=== PATIENT | female | born 1935 | race Caucasian/White ===

== ENCOUNTER 2018-12-20 02:20 | Inpatient (IN) ==
[2018-12-20] MEDS ORDERED: Ondansetron 4 MG/2 ML VIAL IVP PRN (05:35)
[2018-12-20] MEDS ORDERED: Acetaminophen 325 MG TABLET PO PRN (05:35)
[2018-12-20] MEDS ORDERED: Dextrose Gel 15 GM/37.5 ML TUBE PO PRN ×2 (05:35)
[2018-12-20] MEDS ORDERED: *HR* Dextrose 50 % in Water (Syg) 50 ML SYRINGE IVP PRN (05:35)
[2018-12-20 06:00] LABS: Basophils % 0.2 %
[2018-12-20 06:02] LABS: Basophils # 0.1 K/mcL (0.0-0.2); Hematocrit 34.1 % (35.3-44.9); Lymphocytes # 0.7 K/mcL (0.6-4.6); Lymphocytes % 2.4 %; Mean Corpuscular HGB Conc 32.3 g/dL (31.6-35.5); Mean Corpuscular Hemoglobin 31.3 pg (28.0-33.3); Mean Corpuscular Volume 96.9 fL (83.0-100.0); Mean Platelet Volume 9.3 fL (9.4-12.4); Monocytes # 1.3 K/mcL (0.0-1.3); Monocytes % 4.4 %; Platelet Count 159 K/mcL (140-400); Red Blood Count 3.52 M/mcL (3.82-4.97); White Blood Count 28.9 K/mcL (4.3-11.1)
[2018-12-20 06:04] LABS: Neutrophils # 26.6 K/mcL (1.6-8.9)
[2018-12-20 06:08] LABS: INR 1.3; Prothrombin Time 14.5 Seconds (9.4-12.1)
[2018-12-20 06:10] LABS: Activated Partial Thrombo Time 29.6 Seconds (26.0-36.0)
[2018-12-20 06:23] LABS: Bilirubin,Direct 0.2 mg/dL (0.0-0.2); Bilirubin,Indirect 0.4 mg/dL (0.0-1.2); Bilirubin,Total 0.6 mg/dL (0.3-1.0); Calcium 8.2 mg/dL (8.6-10.3); Magnesium 1.5 mg/dL (1.6-2.6); Platelet Estimate Normal (Normal); Potassium 3.1 mEq/L (3.5-5.1); Troponin I 0.44 ng/mL (< 0.04)
[2018-12-20] MEDS ORDERED: Potassium Chloride 40 MEQ, Lidocaine 1% 2 ML in 0.9 % Sodium Chloride 500 ML IVPB ONE (06:26)
[2018-12-20] MEDS: *HR* Heparin 5,000 UNIT/ML VIAL SQ SCH ×3 (06:30→21:09)
[2018-12-20] MEDS: Insulin LISPRO 300 UNITS/3 ML VIAL SQ SCH ×3 (06:32→16:37)
[2018-12-20] MEDS ORDERED: Potassium Phosphate 44 MEQ in 0.9 % Sodium Chloride 250 ML IVPB ONE (06:33)
[2018-12-20] MEDS ORDERED: Insulin LISPRO 300 UNITS/3 ML VIAL SQ SCH ×2 (07:30→21:00)
[2018-12-20] MEDS ORDERED: D5% in Water 1,000 ML IVC PRN (08:35)
[2018-12-20] MEDS: Ringers Solution, Lactated 1,000 ML IVC SCH ×2 (08:47→15:52)
[2018-12-20] MEDS: Piperacillin/Tazobactam 3.375 GM in 0.9 % Sodium Chloride Mini Bag 100 ML IVPB SCH ×2 (08:52→15:54)
[2018-12-20] MEDS ORDERED: 0.9 % Sodium Chloride 1,000 ML IVC ONE (16:49)
[2018-12-20 22:40] LABS: Acinetobacter baumannii by PCR Not Detected (Not Detect); Enterobacter cloacae Cmplx PCR Not Detected (Not Detect); Enterococcus by PCR Not Detected (Not Detect); Staphylococcus aureus by PCR Not Detected (Not Detect); Staphylococcus by PCR Not Detected (Not Detect); Streptococcus agalactiae(B)PCR Not Detected (Not Detect); Streptococcus by PCR Not Detected (Not Detect); Streptococcus pneumoniae PCR Not Detected (Not Detect); Streptococcus pyogenes (A) PCR Not Detected (Not Detect); blaKPC Carbapenem-Resist Gene Not Detected (Not Detect)
[2018-12-20 22:41] LABS: Candida albicans by PCR Not Detected (Not Detect); Candida glabrata by PCR Not Detected (Not Detect); Candida krusei by PCR Not Detected (Not Detect); Candida parapsilosis by PCR Not Detected (Not Detect); Candida tropicalis by PCR Not Detected (Not Detect); Escherichia coli by PCR DETECTED (Not Detect); Klebsiella oxytoca by PCR Not Detected (Not Detect); Klebsiella pneumoniae by PCR Not Detected (Not Detect); Proteus by PCR Not Detected (Not Detect); Pseudomonas aeruginosa by PCR Not Detected (Not Detect); Serratia marcescens by PCR Not Detected (Not Detect)
[2018-12-21] MEDS: Insulin LISPRO 300 UNITS/3 ML VIAL SQ SCH ×5 (01:08→20:13)
[2018-12-21] MEDS: Piperacillin/Tazobactam 3.375 GM in 0.9 % Sodium Chloride Mini Bag 100 ML IVPB SCH ×4 (01:11→23:19)
[2018-12-21] MEDS: *HR* Heparin 5,000 UNIT/ML VIAL SQ SCH ×3 (05:42→20:15)
[2018-12-21 06:19] LABS: Hematocrit 29.9 % (35.3-44.9); Hemoglobin 9.6 g/dL (11.5-15.4); Mean Corpuscular HGB Conc 32.1 g/dL (31.6-35.5); Mean Corpuscular Hemoglobin 30.9 pg (28.0-33.3); Mean Corpuscular Volume 96.1 fL (83.0-100.0); Mean Platelet Volume 9.6 fL (9.4-12.4); Platelet Count 130 K/mcL (140-400); Red Blood Count 3.11 M/mcL (3.82-4.97); Red Cell Distribution Width 14.8 % (11.5-14.5)
[2018-12-21 06:38] LABS: Magnesium 1.7 mg/dL (1.6-2.6); Phosphorous 3.5 mg/dL (2.7-4.5); Potassium 3.6 mEq/L (3.5-5.1)
[2018-12-21 07:06] LABS: White Blood Count 11.5 K/mcL (4.3-11.1)
[2018-12-21] MEDS ORDERED: Cholestyramine 4 GM POWD.PACK PO PRN (09:08)
[2018-12-21] MEDS ORDERED: *HR* HYDROcodone/Acet 5/325 mg TABLET PO PRN (09:08)
[2018-12-21] MEDS ORDERED: *HR* LORazepam 0.5 MG TABLET PO PRN ×2 (09:08→09:19)
[2018-12-21] MEDS ORDERED: Albuterol 2.5 MG/3 ML NEBULIZER IH PRN (09:10)
[2018-12-21] MEDS: Metoprolol XL (24 HR) Succ 50 MG TAB.ER.24H PO SCH (10:01)
[2018-12-21] MEDS: Aspirin Enteric Coated 81 MG Tablet PO SCH (10:01)
[2018-12-21] MEDS: Ascorbic Acid 500 MG TABLET PO SCH (10:19)
[2018-12-21] MEDS: *HR* HYDROcodone/Acet 5/325 mg TABLET PO PRN ×2 (16:17→20:16)
[2018-12-21 18:17] LABS: Adenovirus F 40/41 PCR Not detected (Not detect); Astrovirus PCR Not detected (Not detect); C.difficile Toxin A/B Gene PCR Not detected (Not detect); Campylobacter by PCR Not detected (Not detect); Cryptosporidium by PCR Not detected (Not detect); Cyclospora cayetanensis PCR Not detected (Not detect); E. coli O157 by PCR Not detected (Not detect); Entamoeba histolytica PCR Not detected (Not detect); Enteroaggregative E.coli(EAEC) Not detected (Not detect); Enteropathogenic E.coli(EPEC) Not detected (Not detect); Enterotoxigenic E.coli (ETEC) Not detected (Not detect); Giardia lamblia PCR Not detected (Not detect); Norovirus GI/GII PCR Not detected (Not detect); Plesiomonas shigelloides PCR Not detected (Not detect); Rotavirus A PCR Not detected (Not detect); Salmonella PCR Not detected (Not detect); Sapovirus PCR Not detected (Not detect); Shig/EnteroinvasiveE coli EIEC Not detected (Not detect); Shigalike tox-prod E coli STEC Not detected (Not detect); Vibrio PCR Not detected (Not detect); Vibrio cholerae PCR Not detected (Not detect); Yersinia enterocolitica PCR Not detected (Not detect)
[2018-12-21] MEDS: Divalproex (12 HR) 500 MG TABLET PO SCH (20:13)
[2018-12-21] MEDS: Melatonin 3 MG TABLET PO SCH (20:14)
[2018-12-21] MEDS: Dorzolamide OPTH 10 ML BOTTLE BOTH EYES SCH (20:15)
[2018-12-21] MEDS: Latanoprost 2.5 ML BOTTLE BOTH EYES SCH (20:16)
[2018-12-21] MEDS ORDERED: NON-FORMULARY MEDICATION 1 EACH EACH (Melatonin 5 MG) PO SCH (21:00)
[2018-12-22] MEDS: *HR* Heparin 5,000 UNIT/ML VIAL SQ SCH ×3 (05:40→22:29)
[2018-12-22 05:53] LABS: Hematocrit 27.6 % (35.3-44.9); Hemoglobin 8.9 g/dL (11.5-15.4); Mean Corpuscular HGB Conc 32.2 g/dL (31.6-35.5); Mean Corpuscular Volume 96.2 fL (83.0-100.0); Mean Platelet Volume 9.5 fL (9.4-12.4); Platelet Count 157 K/mcL (140-400); Red Blood Count 2.87 M/mcL (3.82-4.97); Red Cell Distribution Width 14.6 % (11.5-14.5); White Blood Count 11.9 K/mcL (4.3-11.1)
[2018-12-22 06:15] LABS: Calcium 8.1 mg/dL (8.6-10.3); Potassium 3.6 mEq/L (3.5-5.1)
[2018-12-22 06:41] LABS: Magnesium 1.7 mg/dL (1.6-2.6); Phosphorous 2.7 mg/dL (2.7-4.5)
[2018-12-22] MEDS: Piperacillin/Tazobactam 3.375 GM in 0.9 % Sodium Chloride Mini Bag 100 ML IVPB SCH ×2 (07:56→14:45)
[2018-12-22] MEDS: Insulin LISPRO 300 UNITS/3 ML VIAL SQ SCH ×4 (07:57→22:31)
[2018-12-22] MEDS: Cholecalciferol (D-3) 1,000 UNIT (25MCG) TABLET PO SCH (08:58)
[2018-12-22] MEDS: Aspirin Enteric Coated 81 MG Tablet PO SCH (08:58)
[2018-12-22] MEDS: Metoprolol XL (24 HR) Succ 50 MG TAB.ER.24H PO SCH (08:58)
[2018-12-22] MEDS: BuPROPion XL (24 HR) 150 MG TABLET PO SCH (08:58)
[2018-12-22] MEDS ORDERED: Ascorbic Acid 500 MG TABLET PO SCH (09:00)
[2018-12-22] MEDS ORDERED: Latanoprost 2.5 ML BOTTLE BOTH EYES SCH (09:00)
[2018-12-22] MEDS: Dorzolamide OPTH 10 ML BOTTLE BOTH EYES SCH ×2 (09:12→22:31)
[2018-12-22] MEDS: Divalproex (12 HR) 250 MG TABLET PO SCH (12:18)
[2018-12-22] MEDS: Ascorbic Acid 500 MG TABLET PO SCH (12:19)
[2018-12-22] MEDS: Melatonin 3 MG TABLET PO SCH (22:29)
[2018-12-22] MEDS: Divalproex (12 HR) 500 MG TABLET PO SCH (22:29)
[2018-12-22] MEDS: Latanoprost 2.5 ML BOTTLE BOTH EYES SCH (22:31)
[2018-12-23] MEDS: Piperacillin/Tazobactam 3.375 GM in 0.9 % Sodium Chloride Mini Bag 100 ML IVPB SCH ×2 (02:45→08:52)
[2018-12-23] MEDS: *HR* Heparin 5,000 UNIT/ML VIAL SQ SCH ×3 (06:09→22:26)
[2018-12-23] MEDS: BuPROPion XL (24 HR) 150 MG TABLET PO SCH (08:52)
[2018-12-23] MEDS: Aspirin Enteric Coated 81 MG Tablet PO SCH (08:52)
[2018-12-23] MEDS: Metoprolol XL (24 HR) Succ 50 MG TAB.ER.24H PO SCH (08:52)
[2018-12-23] MEDS: Cholecalciferol (D-3) 1,000 UNIT (25MCG) TABLET PO SCH (08:52)
[2018-12-23] MEDS: Dorzolamide OPTH 10 ML BOTTLE BOTH EYES SCH ×2 (09:03→22:29)
[2018-12-23] MEDS: Insulin LISPRO 300 UNITS/3 ML VIAL SQ SCH ×4 (09:05→22:27)
[2018-12-23] MEDS ORDERED: levoFLOXacin 750 MG TABLET PO SCH (12:00)
[2018-12-23 13:17] LABS: Hematocrit 30.1 % (35.3-44.9); Hemoglobin 10.1 g/dL (11.5-15.4); Mean Corpuscular HGB Conc 33.6 g/dL (31.6-35.5); Mean Corpuscular Hemoglobin 31.7 pg (28.0-33.3); Mean Corpuscular Volume 94.4 fL (83.0-100.0); Mean Platelet Volume 9.1 fL (9.4-12.4); Platelet Count 185 K/mcL (140-400); Red Blood Count 3.19 M/mcL (3.82-4.97); Red Cell Distribution Width 14.4 % (11.5-14.5); White Blood Count 12.9 K/mcL (4.3-11.1)
[2018-12-23 13:32] LABS: BUN/Creatinine Ratio 12 (6-26); Blood Urea Nitrogen 13 mg/dL (8-23); Calcium 8.3 mg/dL (8.6-10.3); Carbon Dioxide 22 mEq/L (23-29); Chloride 110 mEq/L (98-107); Glucose 133 mg/dL (70-105); Magnesium 1.6 mg/dL (1.6-2.6); Osmolality,Calculated 282 (280-300); Phosphorous 2.5 mg/dL (2.7-4.5); Potassium 3.5 mEq/L (3.5-5.1); Sodium 135 mEq/L (136-145); eGFR For African Americans > 60 (> 60); eGFR For Non-African Americans 50 (> 60)
[2018-12-23] MEDS: Divalproex (12 HR) 250 MG TABLET PO SCH (14:01)
[2018-12-23] MEDS: Ascorbic Acid 500 MG TABLET PO SCH (14:01)
[2018-12-23] MEDS: Melatonin 3 MG TABLET PO SCH (22:26)
[2018-12-23] MEDS: Divalproex (12 HR) 500 MG TABLET PO SCH (22:27)
[2018-12-23] MEDS: Latanoprost 2.5 ML BOTTLE BOTH EYES SCH (22:29)
[2018-12-24] MEDS: *HR* Heparin 5,000 UNIT/ML VIAL SQ SCH ×3 (05:29→21:48)
[2018-12-24 05:50] LABS: Hematocrit 27.5 % (35.3-44.9); Hemoglobin 8.9 g/dL (11.5-15.4); Mean Corpuscular HGB Conc 32.4 g/dL (31.6-35.5); Mean Corpuscular Hemoglobin 30.4 pg (28.0-33.3); Mean Corpuscular Volume 93.9 fL (83.0-100.0); Platelet Count 186 K/mcL (140-400); Red Blood Count 2.93 M/mcL (3.82-4.97); Red Cell Distribution Width 14.2 % (11.5-14.5); White Blood Count 14.1 K/mcL (4.3-11.1)
[2018-12-24 06:08] LABS: Calcium 8.2 mg/dL (8.6-10.3); Potassium 3.5 mEq/L (3.5-5.1)
[2018-12-24] MEDS: Insulin LISPRO 300 UNITS/3 ML VIAL SQ SCH ×3 (09:01→17:02)
[2018-12-24] MEDS: BuPROPion XL (24 HR) 150 MG TABLET PO SCH (09:01)
[2018-12-24] MEDS: Cholecalciferol (D-3) 1,000 UNIT (25MCG) TABLET PO SCH (09:01)
[2018-12-24] MEDS: Metoprolol XL (24 HR) Succ 50 MG TAB.ER.24H PO SCH (09:01)
[2018-12-24] MEDS: Aspirin Enteric Coated 81 MG Tablet PO SCH (09:01)
[2018-12-24] MEDS: Dorzolamide OPTH 10 ML BOTTLE BOTH EYES SCH ×2 (09:04→21:48)
[2018-12-24] MEDS: Divalproex (12 HR) 250 MG TABLET PO SCH (12:48)
[2018-12-24] MEDS: Ascorbic Acid 500 MG TABLET PO SCH (12:48)
[2018-12-24] MEDS ORDERED: Furosemide 20 MG/2 ML VIAL IVP ONE (17:31)
[2018-12-24] MEDS: Melatonin 3 MG TABLET PO SCH (21:48)
[2018-12-24] MEDS: Latanoprost 2.5 ML BOTTLE BOTH EYES SCH (21:48)
[2018-12-24] MEDS: Divalproex (12 HR) 500 MG TABLET PO SCH (21:48)
[2018-12-25] MEDS: Insulin LISPRO 300 UNITS/3 ML VIAL SQ SCH ×3 (02:16→11:06)
[2018-12-25 05:10] LABS: Hematocrit 27.9 % (35.3-44.9); Mean Corpuscular HGB Conc 32.3 g/dL (31.6-35.5); Mean Corpuscular Hemoglobin 30.7 pg (28.0-33.3); Mean Corpuscular Volume 95.2 fL (83.0-100.0); Mean Platelet Volume 8.8 fL (9.4-12.4); Platelet Count 210 K/mcL (140-400); Red Blood Count 2.93 M/mcL (3.82-4.97); Red Cell Distribution Width 14.4 % (11.5-14.5); White Blood Count 12.7 K/mcL (4.3-11.1)
[2018-12-25 05:29] LABS: BUN/Creatinine Ratio 10 (6-26); Blood Urea Nitrogen 10 mg/dL (8-23); Calcium 8.4 mg/dL (8.6-10.3); Carbon Dioxide 25 mEq/L (23-29); Chloride 106 mEq/L (98-107); Glucose 121 mg/dL (70-105); Osmolality,Calculated 288 (280-300); Potassium 3.3 mEq/L (3.5-5.1); Sodium 139 mEq/L (136-145); eGFR For African Americans > 60 (> 60); eGFR For Non-African Americans 54 (> 60)
[2018-12-25] MEDS: *HR* Heparin 5,000 UNIT/ML VIAL SQ SCH ×2 (06:34→13:28)
[2018-12-25] MEDS: Nystatin Cream 15 GM TUBE TP SCH ×2 (06:34→09:48)
[2018-12-25 08:04] VITALS: BP 127/66
[2018-12-25] MEDS: BuPROPion XL (24 HR) 150 MG TABLET PO SCH (09:48)
[2018-12-25] MEDS: Cholecalciferol (D-3) 1,000 UNIT (25MCG) TABLET PO SCH (09:48)
[2018-12-25] MEDS: Metoprolol XL (24 HR) Succ 50 MG TAB.ER.24H PO SCH (09:48)
[2018-12-25] MEDS: Aspirin Enteric Coated 81 MG Tablet PO SCH (09:48)
[2018-12-25] MEDS: Dorzolamide OPTH 10 ML BOTTLE BOTH EYES SCH (09:49)
[2018-12-25] MEDS ORDERED: levoFLOXacin 750 MG TABLET PO SCH (10:15)
[2018-12-25] MEDS: Divalproex (12 HR) 250 MG TABLET PO SCH (11:06)
[2018-12-25] MEDS: Ascorbic Acid 500 MG TABLET PO SCH (11:08)
[2018-12-25] MEDS ORDERED: FLU Vac QV 19-20 (6Month+)/PF 0.5 ML SYRINGE IM ONE (13:50)
== END 2018-12-25 15:37 | DRG 872 ==
LOC: 2ANU → SUATTDRO 05:15 → 2ANU 12-23 17:20
PROVIDERS: ADMIT Internal Medicine; ATTEND Family Medicine